=== PATIENT | female | born 1990 | race Caucasian/White ===

== ENCOUNTER 2016-07-14 06:44 | Inpatient (IN) | payer OTHER ==
[~2016-07-14] VITALS: Ht 170.2 cm; Wt 88.9 kg
--- NOTE | ~2016-07-14 | OR ---
PATIENT'S NAME: SYDNIE EUBANKS [facility] AGE: 25 Y [address] ROOM: [place] [address] LOCATION: [facility] ADMIT DATE: 07/14/2016 OR/Procedure Report DISCHARGE DATE: FAMILY PHYSICIAN: Chris Gan MD ATTENDING PHYSICIAN: Stan Aguilar SURGEON: Stan Aguilar MD FIELD EXAMINER: DATE OF PROCEDURE: 07/14/2016 PREOPERATIVE DIAGNOSES: 1. Intrauterine at 39 weeks and 2 days. 2. Favorable cervix. POSTOPERATIVE DIAGNOSES: 1. Intrauterine at 39 weeks and 2 days. 2. Favorable cervix. PROCEDURE: Spontaneous vaginal delivery. ESTIMATED BLOOD LOSS: 300 mL. ANESTHESIA: Epidural. FINDINGS: Male infant. score 8 and 9. Weight 8 pounds and 6 ounces. Intact placenta. 3-vessel cord. No lacerations. Clear amniotic fluid. True knot in the cord. INDICATIONS: This patient is a 25-year-old, G2, P1-0-0-1 female. She was 3 to 4 cm in the office and presented for elective induction. She had artificial rupture of membranes and Pitocin had just gotten started and she progressed very quickly to complete. She underwent expulsive efforts for just a few contractions. She did not have time for her epidural to be working. The heart rate went down the last 5 minutes as the patient was . DESCRIPTION OF PROCEDURE: With expulsive effort, the head delivered over an intact perineum. The rest of fetus delivered. The nose and mouth were bulb suctioned. The cord was clamped and cut. The was handed to awaiting team. Cord blood and cord pH were drawn. The placenta delivered with manual traction. Cervix, vagina, and perineum were examined. No lacerations were noted. STAN AGUILAR MD PATIENT'S NAME: SYDNIE EUBANKS [facility] AGE: 25 Y [address] ROOM: [place] [address] LOCATION: [facility] ADMIT DATE: 07/14/2016 OR/Procedure Report DISCHARGE DATE: FAMILY PHYSICIAN: Chris Gan MD ATTENDING PHYSICIAN: Stan AguilarJ/saral /[id number] d: [birth year]/164 t: 07/16/16 0941, OPERATIVE SUMMARY
[2016-07-14 08:04] LABS: BASOPHIL % 0.2 %; EOSINOPHIL # 0.1 K/uL (0.0-0.5); EOSINOPHIL % 0.7 %; HEMATOCRIT 38.8 % (33.0-46.0); HEMOGLOBIN 12.8 g/dL (11.0-15.0); IMMATURE GRANULOCYTE # 0.1 K/uL (0.0-0.3); IMMATURE GRANULOCYTE % 0.7 %; LYMPHOCYTE # 1.7 K/uL (0.8-4.0); LYMPHOCYTE % 16.9 %; MCH 29.3 pg (27.0-34.0); MCV 88.8 fl (83.0-98.0); MONOCYTE # 1.1 K/uL (0.0-1.0); MONOCYTE % 10.3 %; MPV 11.7 fl (9.4-12.4); NEUTROPHIL # (ANC) 7.3 K/uL (1.8-7.8); NEUTROPHIL % 71.2 %; NRBC % 0 /100WBC (0-0.00); PLATELET COUNT 186 K/uL (150-450); RBC 4.37 M/uL (3.50-5.00); RDW-CV 13.4 % (11.9-14.6); WBC 10.2 K/uL (4.0-11.0)
[2016-07-14 12:53] LABS: PCO2 41 mmHg (35-45)
[2016-07-14 12:54] LABS: BICARBONATE 19.8 mmol/L (18.0-23.0); PO2 28 mmHg (80-90)
--- NOTE | 2016-07-14 17:40 | NUR ---
Last VS: T:98.1 P:92 R: 16 BP: 115/70 Pain rating: . Last pain med: None given Medicated at: Effective: Breasts: , Nipples: WNL Fundus:, , FF EVEN Lochia: , SMALL LAST TIME UP AT 1730 Epis/Perineum: , ,INTACT Voiding well: YES X2 Significant event: GOT LIGHTHEADED WHEN UP THE 1ST TIME(BR ONLY) AT 1530 THEN BR ONLY AT 1715 TOLERATED WELL. NEEDS SHOWER BUT TIDY DONE. SALOCK INTACT TO LT HAND. AT BS AND SUPPORTIVE.
[2016-07-15 04:35] LABS: BASOPHIL % 0.2 %; EOSINOPHIL # 0.1 K/uL (0.0-0.5); EOSINOPHIL % 0.7 %; HEMATOCRIT 34.7 % (33.0-46.0); HEMOGLOBIN 11.5 g/dL (11.0-15.0); IMMATURE GRANULOCYTE # 0.1 K/uL (0.0-0.3); IMMATURE GRANULOCYTE % 0.5 %; LYMPHOCYTE # 2.6 K/uL (0.8-4.0); LYMPHOCYTE % 18.9 %; MCH 29.9 pg (27.0-34.0); MCHC 33.1 gm/dL (32.0-36.5); MCV 90.1 fl (83.0-98.0); MONOCYTE # 1.4 K/uL (0.0-1.0); MONOCYTE % 9.9 %; MPV 11.7 fl (9.4-12.4); NEUTROPHIL # (ANC) 9.5 K/uL (1.8-7.8); NEUTROPHIL % 69.8 %; NRBC % 0 /100WBC (0-0.00); PLATELET COUNT 166 K/uL (150-450); RBC 3.85 M/uL (3.50-5.00); RDW-CV 13.3 % (11.9-14.6); WBC 13.6 K/uL (4.0-11.0)
--- NOTE | 2016-07-15 05:38 | NUR ---
VSS, FUNDUS FIRM, MIDLINE, SMALL FLOW, NEEDS RHOGHAM, SCREEN ORDERED, MOTRIN LAST AT 042
[2016-07-15] MEDS ORDERED: MOTRIN800 MG PO (14:31)
[2016-07-15] MEDS ORDERED: PERCOCET 5-3251 EACH PO (14:32)
== END 2016-07-15 15:20 | disposition disaster alternative care site (69) | DRG 775 ==
LOC: GOBM 06:44 → GOBS 06:44 → GOBM 06:45 → GOBS 06:45
PROVIDERS: ADMIT Obstetrics & Gynecology
PROC: 10907ZC Drainage of Amniotic Fluid, Therapeutic from Products of Conception, Via Natural or Artificial Opening (ICD-10-PCS; principal; 2016-07-14)
PROC: 3E033VJ Introduction of Other Hormone into Peripheral Vein, Percutaneous Approach (ICD-10-PCS; principal; 2016-07-14)
PROC: 10E0XZZ Delivery of Products of Conception, External Approach (ICD-10-PCS; principal; 2016-07-14)
DX: O80 Encounter for full-term uncomplicated delivery (principal); Z37.0 Single live birth; Z3A.39 39 weeks gestation of pregnancy
CPT/HCPCS: J2210; J2590; J3010; J7120